=== PATIENT | male | born 1945 | race Caucasian/White ===

== ENCOUNTER 2017-03-05 13:23 | Emergency (ER) | payer OTHER ==
[~2017-03-05] VITALS: Ht 175.3 cm; Wt 92.9 kg
[2017-03-05 14:32] LABS: HEMATOCRIT 38.4 % (38.0-50.0); MCH 32.2 PG (29.0-34.0); MCHC 34.4 G/DL (30.0-36.0); MCV 93.7 FL (86-99); MEAN PLAT.VOLUME 10.3 uM^3 (9.0-12.4); PLATELET COUNT 189 K/uL (156-360); RBC DIS.WIDTH-CV 11.9 % (11.8-14.6); RBC DIS.WIDTH-SD 41.3 % (39-53)
[2017-03-05 14:41] LABS: CHLORIDE 101 mEq/L (99-109); POTASSIUM 4.2 mEq/L (3.7-5.4); SODIUM 137 mEq/L (136-147)
[2017-03-05 14:43] LABS: GLUCOSE 125 mg/dL (70-99)
[2017-03-05 14:44] LABS: ANION GAP 9 MEQ/L (2-14)
[2017-03-05 14:45] LABS: TOTAL BILIRUBIN 0.5 mg/dL (0.0-1.0)
[2017-03-05 14:46] LABS: ALKALINE PHOSPHATASE 114 IU/L (3-129)
[2017-03-05 14:47] LABS: GFR ESTIMATE (CALCULATED) > 59 mL/min/
[2017-03-05 14:48] LABS: UREA NITROGEN (BUN) 17 mg/dL (9-23)
[2017-03-05 14:49] LABS: ADD MIUA? YES; BILIRUBIN NEGATIVE; BLOOD SMALL; COLOR YELLOW ((YELLOW)); GLUCOSE (STRIP) NEGATIVE; KETONES NEGATIVE; LEUKOCYTES NEGATIVE; NITRITE NEGATIVE; PROTEIN (STRIP) NEGATIVE; SPECIFIC GRAVITY 1.008 (1.000-1.030); UROBILINOGEN 0.2 MG/DL (0.2-1.0)
[2017-03-05 14:50] LABS: LIPASE 5 U/L (1.0-51.0)
[2017-03-05 15:02] LABS: BACTERIA NONE SEEN /HPF; EPITHELIAL CELLS NONE SEEN /HPF; MUCUS TRACE /LPF; RED BLOOD CELLS 0-5 /HPF (0-5); UCUL ADDED? NO; WHITE BLOOD CELLS 0-5 /HPF (0-5)
[2017-03-05 17:27] VITALS: BP 173/72
== END 2017-03-05 17:27 | disposition home or self-care (01) ==
LOC: EME 13:23
DX: R10.32 Left lower quadrant pain (principal); R11.0 Nausea; F17.200 Nicotine dependence, unspecified, uncomplicated
CPT/HCPCS: 74177; 80053; 81003; 83690; 85027; 99281; 99285; J7030